=== PATIENT | female | born 1975 | race American Indian/Alaskan Native ===

== ENCOUNTER 2017-09-22 02:33 | Emergency (ER) | payer OTHER ==
[2017-09-22 02:49] VITALS: BP 118/74; RESP 20; TEMP 98; O2SAT 100
[2017-09-22] MEDS ORDERED: DiphenhydrAMINE 50 mg/ml Inj IVP STA (02:58)
[2017-09-22] MEDS ORDERED: Albuterol-Ipratrop 3 mg / 0.5 (3 ml) UD INH STA ×3 (02:59→03:53)
--- NOTE | 2017-09-22 03:26 | ED PDOC ---
HPI: Allergic Reaction Time Seen by Provider: 09/22/17 02:46 Chief Complaint (Nursing): Allergic Reaction History Per: Patient History/Exam Limitations: no limitations Onset/Duration Of Symptoms: Mins Current Symptoms Are (Timing): Still Present Possible Cause: Unknown Associated Symptoms: denies: Skin Rash, Swelling, Dyspnea, Dizziness, Itching Additional Complaint(s): Hx of seasonal allergies presenting with feeling of throat closure, states she has been on steroids for the past 3 days, has taken multiple anthistamines, but states these interventions have not helped and that tonight she had the feeling that her throat was closing. Denies any new exposures, denies rash. No fevers , chills, nausea, vomiting, or others. Past Medical History Reviewed: Historical Data, Nursing Documentation, Vital Signs Vital Signs: Last Vital Signs Temp 98.0 F 09/22/17 02:46 Pulse 84 09/22/17 02:46 Resp 20 09/22/17 02:46 BP 118/74 09/22/17 02:46 Pulse Ox 100 09/22/17 02:46 - Family History Family History: States: Unknown Family Hx - Allergies Allergies/Adverse Reactions: Allergies Allergy/AdvReac Type Severity Reaction Status Date / Time seasonal Allergy CONGESTION Uncoded 09/22/17 02:46 Review of Systems ROS Statement: Except As Marked, All Systems Reviewed And Found Negative ENT: Positive for: Throat Swelling (sensation of throat swelling) Physical Exam - Reviewed Nursing Documentation Reviewed: Yes Vital Signs Reviewed: Yes - Physical Exam Appears: Positive for: Well, Non-toxic, No Acute Distress Head Exam: Positive for: ATRAUMATIC, NORMAL INSPECTION, NORMOCEPHALIC Skin: Positive for: Normal Color, Warm, DRY Eye Exam: Positive for: EOMI, Normal appearance, PERRL ENT: Positive for: Normal ENT Inspection, Pharynx Is (normal, no swelling). Negative for: Tonsillar Exudate, Tonsillar Swelling Neck: Positive for: Normal, Painless ROM Cardiovascular/Chest: Positive for: Regular Rate, Rhythm Respiratory: Positive for: CNT, Normal Breath Sounds Gastrointestinal/Abdominal: Positive for: Normal Exam, Soft. Negative for: Tenderness Back: Positive for: Normal Inspection Extremity: Positive for: Normal ROM Neurologic/Psych: Positive for: Alert, community service representative II-XII, Oriented. Negative for: Motor/Sensory Deficits - ECG O2 Sat by Pulse Oximetry: 100 Pulse Ox Interpretation: Normal - Progress ED Course And Treament: 3AM A/P: Hx of seasonal allergies presenting with feelings of throat closure -patient speaking full sentences, normal vitals, normal exam -likely patient is having anxiety, no firm objective signs of anaphylaxis or significant allergic reaction 430AM -Patient's exam remains normal -Patient requesting to go home -Advised to followup with PMD Disposition - Clinical Impression Clinical Impression: Allergic reaction - Disposition Referrals: [facility] [Outside] Disposition: Routine/Home Disposition Time: 04:26 Condition: STABLE Instructions: Seasonal Allergies in Adults Forms: [employer] (Hungarian)
[2017-09-22] MEDS ORDERED: Albuterol-Ipratrop 3 mg / 0.5 (3 ml) UD ONE (04:33)
[2017-09-22 04:50] VITALS: PULSE 93
== END 2017-09-22 04:45 | disposition home or self-care (01) ==
LOC: H.ER 02:33
DX: T78.40XA Allergy, unspecified, initial encounter (principal); J30.2 Other seasonal allergic rhinitis
CPT/HCPCS: 96374; 96375; 99283; J1200; J1885; J2930